=== PATIENT | male | born 1950 | race Caucasian/White ===

== ENCOUNTER → 2022-03-12 | Day surgery (SDC) | payer MEDICARE, BC | END | disposition home or self-care (01) | LOC: MSO 08:48 | DX: H25.12 Age-related nuclear cataract, left eye (principal); Z79.82 Long term (current) use of aspirin; Z79.01 Long term (current) use of anticoagulants; Z87.891 Personal history of nicotine dependence; Z99.81 Dependence on supplemental oxygen; Z85.89 Personal history of malignant neoplasm of other organs and systems | CPT/HCPCS: 00142; J0171; J2250; V2632 ==